=== PATIENT | female | born 1965 | race Caucasian/White ===

== ENCOUNTER 2019-12-25 10:43 | Emergency (ER) | payer OTHER ==
[~2019-12-25] VITALS: Ht 182.9 cm; Wt 9.1 kg
[2019-12-25 10:45] VITALS: BP 144/72
[2019-12-25] MEDS ORDERED: oxyCODONE/APAP 10/325mg tablet PO ONE (12:45)
[2019-12-25] MEDS ORDERED: MELO-100 PO (13:57)
[2019-12-25] MEDS ORDERED: LIDO700A32 TOP (13:57)
== END 2019-12-25 14:06 | disposition home or self-care (01) ==
LOC: ER 10:44
DX: G89.29 Other chronic pain (principal); M54.5 Low back pain; Z98.890 Other specified postprocedural states; Z88.5 Allergy status to narcotic agent; Z79.899 Other long term (current) drug therapy
CPT/HCPCS: 72040; 72074; 99284